=== PATIENT | male | born 1965 | race Caucasian/White ===

== ENCOUNTER 2018-04-29 21:06 | Observation (INO) | payer MEDICARE, OTHER ==
[~2018-04-29 21:06] MED LIST: ADENOSINE 60 MG/20 ML VIAL ONE
--- NOTE | 2018-04-29 21:25 | RAD ---
ONE VIEW CHEST: 04/29/18 HISTORY: Pain. COMPARISON: None. FINDINGS: There is sternotomy wires. Epicardial pacer wires are also noted. Normal cardiac silhouette. Lungs an d pleural spaces are clear. No pneumothorax or osseous abnormalities. IMPRESSION: No acute cardiopulmonary process. POS: [facility]
[2018-04-29] MEDS ORDERED: Morphine 4 MG/ML VIAL ONE (21:37)
[2018-04-29] MEDS ORDERED: Acetaminophen 500 MG TAB ONE (21:37)
[2018-04-29] MEDS ORDERED: Ondansetron PF 4 MG/2 ML Vial ONE (21:38)
[2018-04-29] MEDS ORDERED: Nitroglycerin 2% Ointment 1 INCH/1 GM Packet ONE (21:38)
[2018-04-29 22:13] LABS: ALT (SGPT) 17 U/L (8-55); AST (SGOT) 22 U/L (5-34); Albumin 4.5 g/dL (3.5-5.0); Alkaline Phosphatase 92 U/L (40-150); Anion Gap 17 mmol/L (10-20); BUN (Urea Nitrogen) 17 mg/dL (8.9-20.6); Bilirubin, Total 1.8 mg/dL (0.2-1.2); Calc. Creatinine Clearance 0 mL/min (70-130); Calcium 9.6 mg/dL (7.8-10.44); Carbon Dioxide 19 mmol/L (22-29); Chloride 108 mmol/L (98-107); Estimated GFR-MDRD 82; Glucose 74 mg/dL (70-105); Potassium 4.9 mmol/L (3.5-5.1); Protein, Total 7.5 g/dL (6.0-8.3); Sodium 139 mmol/L (136-145)
[2018-04-29 22:15] LABS: Hemoglobin 16.3 g/dL (14.0-18.0); Mean Corpuscular HGB CONC 32.5 g/dL (32.0-36.0); Mean Corpuscular Hemoglobin 33.1 pg (27.0-31.0); RBC Distribution Width 12.3 % (11.5-14.5); Red Blood Cell (RBC) Count 4.93 mill/uL (4.70-6.10); White Blood Cell (WBC) Count 6.9 thou/uL (4.8-10.8)
[2018-04-29] MEDS ORDERED: hydrALAZINE 20 MG/ML VIAL ONE (22:31)
[2018-04-29 22:55] LABS: #Eosinphils 0.2 thou/uL (0.0-0.7); #Lymphocytes 1.1 thou/uL (1.20-3.40); #Monocytes 0.7 thou/uL (0.11-0.59); #Neutrophils 4.9 thou/uL (1.40-6.50); %Basophils 0.5 % (0.0-1.0); %Eosinophils 2.2 % (0.0-10.0); %Lymphocytes 16.4 % (21.0-51.0); %Monocytes 9.8 % (0.0-10.0); %Neutrophils 71.1 % (42.0-75.0); Mean Platelet Volume 9.7 fL (7.4-10.4); Platelet Count 100 thou/uL (130-400); Platelet Morphology Comment Appears Decreased
[2018-04-29] MEDS ORDERED: Ketorolac Tromethamine 30 MG/ML VIAL ONE (23:30)
[2018-04-30 01:09] LABS: Troponin I Less than 0.010 ng/mL (< 0.028)
--- NOTE | 2018-04-30 01:23 | HP ---
PRIMARY CARE PHYSICIAN: [facility] admission. The patient is seen and examined on the day of 04/29/2018. REASON FOR ADMISSION: Chest pain. HISTORY OF PRESENT ILLNESS: A 52-year-old male who has a history of aortic dissection and coronary artery disease required open heart surgery with CABG in January. At that time, the patient required hospitalization for about one month. The patient also reports that he has a history of KS twice when he was very young and the second time at age of 46. The patient also has underlying history of congestive heart failure and the patient required several times ablation for atrial tachycardia and atrial arrhythmia. 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 He mainly follows [facility] in [place]. The patient also reports that he has planned ablation for his atrial tachycardia in the near soon. 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 He was experiencing yesterday palpitation , but the palpitations subsided after couple of hours during nighttime. This night when he was working and cleaning his desk, at that point, the patient was having chest pain as well as palpitation and that is why coworker called paramedics and the patient was brought to emergency room for evaluation. Paramedics already gave him nitroglycerin sublingual as well as aspirin, Zofran , and the patient was feeling much better afterwards. When I saw this patient in the emergency room, he was not having any further chest pain. He also reported that when he had chest pain, at that time the pain radiated to right upper extremity. He denies any syncope. He denies any orthopnea or PND. He denies any lower extremity edema or calf tenderness. He denies any hemoptysis or cough which he started last night. He denies any flu-like illness. REVIEW OF SYSTEMS: CONSTITUTIONAL: Negative for weight loss or gain, sense of well-being, ability to conduct usual activities, exercise tolerance. SKIN/BREAST: Negative for rash, itching, changes in hair growth or loss, nail changes, breast lumps, tenderness, swelling, nipple discharge. EYES: Negative for vision, double vision, tearing, blind spots, pain. ENT/MOUTH: Negative for headaches, vertigo, lightheadedness, injury. Vision, double vision, tearing, blind spots, pain, nose bleeding, colds, obstruction, discharge , dental difficulties, gingival bleeding, dentures, neck stiffness, pain, tenderness, masses in thyroid or other areas CARDIOVASCULAR: Negative for precordial pain, substernal distress, palpitations , syncope, dyspnea on exertion, orthopnea, nocturnal paroxysmal dyspnea, edema, cyanosis, hypertension, heart murmurs, varicosities, phlebitis, claudication. RESPIRATORY: Negative for pain, shortness of breath, wheezing, stridor, cough, hemoptysis, fever or night sweats GASTROINTESTINAL: Negative for poor appetite, dysphagia, indigestion, abdominal pain, heartburn, eructation, nausea, vomiting, hematemesis, jaundice, constipation, or diarrhea, abnormal stools (bossman-colored, tarry, bloody, greasy, foul smelling ), flatulence, hemorrhoids, recent changes in bowel habits. GENITOURINARY: Negative for urgency, frequency, dysuria, nocturia, hematuria, polyuria, oliguria, unusual (or change in) color of urine, stones, hesitancy, change in size of stream, dribbling, acute retention or incontinence, libido, potency. MUSCULOSKELETAL: Negative for pain, swelling, redness or heat of muscles or joints, limitation of motion, muscular weakness, atrophy, cramps. NEUROLOGIC/PSYCHIATRIC: Negative for convulsions, paralyses, tremor, incoordination, parasthesias, difficulties with memory of speech, sensory or motor disturbances, or muscular coordination (ataxia, tremor), emotional problems, anxiety, depression, previous psychiatric care, unusual perceptions, hallucinations. ALLERGY/IMMUNOLOGIC: Negative for skin rash, anemia, bleeding tendency, polydipsia, polyuria, intolerance to heat or cold. Please see my HPI for pertinent positives and negatives. All other review of systems reviewed and negative except as mentioned in HPI. PAST MEDICAL HISTORY: Per patient, the patient has history of aortic dissection , required surgery, 2 KS required CABG, hypertension dyslipidemia, hypothyroidism. PAST SURGICAL HISTORY: Aortic dissection repair and CABG. PAST PSYCHIATRIC HISTORY: Anxiety and depression. SOCIAL HISTORY: The patient is a former smoker. He quit smoking 10 years ago. He drinks alcohol socially. He denies any other illicit drug abuse. FAMILY HISTORY: Positive for coronary artery disease and cancer among several family members. Father from lung cancer. ALLERGIES: AZITHROMYCIN AND PENICILLIN. CURRENT HOME MEDICATIONS: 1. Aspirin 81 mg daily. 2. Coreg 25 mg twice daily. 3. Lasix 40 mg daily. 4. Levothyroxine 100 mcg p.o. daily. 5. Losartan 50 mg p.o. daily. 6. Nitroglycerin p.r.n. basis. 7. Zoloft 50 mg daily. 8. Aldactone 25 mg p.o. daily. EMERGENCY ROOM COURSE: The patient is given Toradol 30 mg, hydralazine 10 mg, nitroglycerin patch, Zofran 8 mg, morphine 4 mg, and Tylenol 1 g. PHYSICAL EXAMINATION: VITAL SIGNS: Currently, blood pressure 147/83, pulse 69, respiratory rate 20, temperature 98.7, saturation 100% on room air. Weight 81.7 kg. GENERAL: The patient is currently alert, awake, hypertensive, apprehensive. HEENT: Head; normocephalic, atraumatic. Eyes; pupils round, reactive to light. Extraocular muscle intact. ENT, oropharynx within normal limits. Moist mucous membranes. No oral lesion. No pharyngeal erythema. No exudate. NECK: Supple. No JVD. No thyromegaly. No carotid bruit. LUNGS: Clear to auscultation without any rhonchi or rales. CARDIAC: S1 and S2, irregular. No murmur elicited. No gallop. No rub. ABDOMEN: Soft. Bowel sounds present. Nontender. Nondistended. No organomegaly. No mass. No suprapubic tenderness. BACK: Unremarkable. No CVA tenderness. EXTREMITIES: Upper extremities, passive movement of all joints are normal. Lower extremity, trace lower extremity edema noted. Good distal pulsation. No calf tenderness. SKIN: No skin rash. HEMATOLOGICAL SYSTEM: No lymphadenopathy. PSYCHIATRIC: Normal affect. NEUROLOGIC: Nonfocal examination. SIGNIFICANT LABORATORY DATA: EKG showing atrial fibrillation with controlled ventricular response, nonspecific ST-T changes in lead I and aVL. Chest x-ray showing cardiomegaly, post CABG changes. CBC: WBC 6.9, hemoglobin 16.3, MCV 102, platelets 100. BMP: Sodium 139, potassium 4.9, chloride 108, carbon dioxide 19, anion gap 17, BUN 17, creatinine 0.93, glucose 74, calcium 9.4. LFT: AST 22, ALT 17, alkaline phosphatase 92, albumin 4.5, bilirubin 1.8. Troponin 0.010. BNP 251.8. ASSESSMENT AND PLAN: 1. Chest pain and palpitation. The patient has complicated cardiac history including aortic dissection and coronary artery disease with myocardial infarction and several atrial arrhythmias in past, required ablation. This patient's current EKG showing atrial fibrillation with controlled ventricular response. His chest x-ray is unremarkable. His troponin is negative. The patient will be observed in hospital and we will do serial cardiac enzyme x3. We will perform nuclear medicine exercise Cardiolite stress test. We will check urine drug screen. Meanwhile, we will continue with aspirin 325 mg p.o. daily and nitroglycerin patch q.8 hourly. Monitor on telemetry floor. Check lipid profile, TSH for risk stratification. 2. Hypertension. We will continue Coreg 25 mg p.o. twice daily and losartan 50 mg p.o. daily. Use p.r.n. basis hydralazine. 3. Anxiety and depression. We will continue Zoloft 50 mg p.o. daily. 4. Hypothyroidism. We will check TSH and continue his home dose of levothyroxine 150 mcg p.o. daily. 5. Congestive heart failure, type is not known, but suspecting systolic heart failure. The patient is currently euvolemic. We will continue Coreg 25 mg p.o. twice daily, losartan 50 mg p.o. daily, and Lasix 40 mg p.o. daily. We will obtain echocardiography for further evaluation. 6. Macrocytosis and thrombocytopenia, etiology uncertain at this point. We will continue with folic acid and vitamin B12 therapy. 7. Elevated BNP. We will get echocardiography to assess EF. 8. Deep venous thrombosis prophylaxis not needed because we are expecting discharge in 24 hours. 9. Gastrointestinal prophylaxis. Pepcid 20 mg p.o. b.i.d. CODE STATUS: The patient is full code. The patient's mother is surrogate decision maker. DISPOSITION PLAN: Based on above-mentioned investigation result. Plan of care discussed with the patient in detail. The patient is seen and examined on the day of 04/29/2018. Job ID: [id number] [facility]
[2018-04-30] MEDS ORDERED: Bisacodyl 10 MG SUPP PR PRN (01:44)
[2018-04-30] MEDS ORDERED: Senokot S 8.6-50 MG TAB PO PRN (01:44)
[2018-04-30] MEDS ORDERED: Loperamide HCl 2 MG CAP PO PRN (01:44)
[2018-04-30] MEDS ORDERED: Calcium Carbonate 500 MG ChewTAB PO PRN (01:44)
[2018-04-30] MEDS ORDERED: Zolpidem Tartrate 5 MG TAB PO PRN (01:44)
[2018-04-30] MEDS ORDERED: Ondansetron ODT 4 MG TAB PO PRN (01:44)
[2018-04-30] MEDS ORDERED: Bisacodyl 5 MG TAB PO PRN (01:44)
[2018-04-30] MEDS ORDERED: Nitroglycerin 2% Ointment 1 INCH/1 GM Packet ONE (02:26)
[2018-04-30] MEDS ORDERED: HYDROcodone/Acetaminophen 5/325 mg Tablet ONE (02:26)
[2018-04-30 03:33] VITALS: BMI 25.9
[2018-04-30] MEDS: HYDROcodone/Acetaminophen 5/325 mg Tablet PO PRN ×2 (05:55→10:02)
[2018-04-30] MEDS: Nitroglycerin 2% Ointment 1 INCH/1 GM Packet TOP SCH ×3 (05:57→21:41)
[2018-04-30 06:57] LABS: Troponin I Less than 0.010 ng/mL (< 0.028)
[2018-04-30 06:59] LABS: Cardiac Risk 2.9 (Less than 4.5)
[2018-04-30] MEDS ORDERED: HYDROcodone/Acetaminophen 7.5/325 mg Tablet PO PRN (06:59)
[2018-04-30] MEDS ORDERED: Spironolactone 25 MG TAB PO SCH (08:00)
[2018-04-30] MEDS ORDERED: Aspirin 81 mg Enteric Coated Tablet PO SCH (09:00)
[2018-04-30] MEDS ORDERED: Aspirin 325 mg Enteric Coated Tablet PO SCH (09:00)
[2018-04-30] MEDS ORDERED: Losartan 25 MG TAB PO SCH (09:00)
[2018-04-30] MEDS: Ondansetron PF 4 MG/2 ML Vial IVP PRN ×3 (09:41→21:44)
[2018-04-30] MEDS: Folic Acid 1 MG TAB PO SCH (14:32)
[2018-04-30] MEDS: Cyanocobalamin (Vitamin B-12) 1,000 MCG TAB PO SCH (14:33)
[2018-04-30] MEDS: Levothyroxine Sodium 50 MCG TAB PO SCH (14:34)
[2018-04-30] MEDS: Famotidine 20 MG TAB PO SCH ×2 (14:34→21:44)
[2018-04-30] MEDS: Aspirin 81 mg Enteric Coated Tablet PO SCH (14:34)
[2018-04-30] MEDS: Furosemide 40 MG TAB PO SCH (14:35)
[2018-04-30] MEDS: Spironolactone 25 MG TAB PO SCH (14:35)
[2018-04-30] MEDS: Losartan 25 MG TAB PO SCH (14:36)
[2018-04-30] MEDS: Carvedilol 25 MG TAB PO SCH ×2 (14:38→21:41)
[2018-04-30 16:34] LABS: Medtox Reader # READER 1
[2018-04-30 16:35] LABS: Amphetamine Not Detected (NotDetected); Barbiturates Screen Not Detected (NotDetected); Benzodiazepine Screen Not Detected (NotDetected); Cocaine Metabolite Screen Not Detected (NotDetected); Medtox Control Line Valid? VALID (VALID); Methadone Not Detected (NotDetected); Methamphetamine Not Detected (NotDetected); Opiate Screen Detected (NotDetected); Oxycodone Screen Not Detected (NotDetected); Phencyclidine (PCP) Not Detected (NotDetected); THC/Cannabinoid Screen Not Detected (NotDetected); Tricyclic Screen Not Detected (NotDetected)
--- NOTE | 2018-04-30 17:03 | NM ---
NUCLEAR MEDICINE CARDIAC STRESS TEST WITH EJECTION FRACTION: HISTORY: Chest pain. COMPARISON: None. TECHNIQUE: Stress and rest was performed after the intravenous administration of 30.6 and 9.6 mCi technetium-99 m sestamibi, respectively. FINDINGS: There is a large inferior and lateral wall scar extending to the apex. There is dyskinesia of the inf erior and lateral wall. The calculated ejection fraction measures 39%. IMPRESSION: 1. Large scar inferior and lateral wall extending to the apex without significant periinfarct ischem ia appreciated. 2. Low ejection fraction of 39%. POS: [facility]
--- NOTE | 2018-04-30 17:08 | PDOC.PN ---
- Subjective Encounter Start Date: 04/30/18 Encounter Start Time: 17:06 Subjective: cont to have chest pain, asking for iv morphine - Objective Resuscitation Status - Order Detail: 04/30/18 01:42 Resuscitation Status Routine Resuscitation Status: FULL: Full Resuscitation MAR Reviewed: Yes Vital Signs & Weight: Vital Signs (12 hours) Temp Pulse Resp BP Pulse Ox 04/30/18 16:21 98.1 F 65 18 119/69 99 04/30/18 13:53 97.5 F L 87 18 157/88 H 99 04/30/18 08:11 97.7 F 58 L 18 115/66 97 Weight Weight 186 lb 1.6 oz Result Diagrams: 04/29/18 21:36 04/29/18 21:36 Phys Exam - Physical Examination Constitutional: NAD Neck: no JVD Respiratory: clear to auscultation bilateral Cardiovascular: RRR, no significant murmur Gastrointestinal: soft, positive bowel sounds Musculoskeletal: no edema Dx/Plan (1) Chest pain Code(s): R07.9 - CHEST PAIN, UNSPECIFIED Status: Acute Qualifiers: Chest pain type: unspecified Qualified Code(s): R07.9 - Chest pain, unspecified (2) CAD (coronary artery disease) Code(s): I25.10 - ATHSCL HEART DISEASE OF [place] CORONARY ARTERY W/O ANG PCTRS Status: Chronic Qualifiers: Coronary Disease-Associated Artery/Lesion type: [place] artery [place] vs. transplanted heart: [place] heart Associated angina: without angina Qualified Code(s): I25.10 - Atherosclerotic heart disease of [place] coronary artery without angina pectoris (3) Cardiomyopathy Code(s): I42.9 - CARDIOMYOPATHY, UNSPECIFIED Status: Chronic Qualifiers: Cardiomyopathy type: ischemic Qualified Code(s): I25.5 - Ischemic cardiomyopathy (4) HTN (hypertension) Code(s): I10 - ESSENTIAL (PRIMARY) HYPERTENSION Status: Chronic Qualifiers: Hypertension type: essential hypertension Qualified Code(s): I10 - Essential (primary) hypertension (5) Atrial fibrillation Code(s): I48.91 - UNSPECIFIED ATRIAL FIBRILLATION Status: Acute Qualifiers: Atrial fibrillation type: paroxysmal Qualified Code(s): I48.0 - Paroxysmal atrial fibrillation - Plan stress test neg, discussed with patient. on no anticag, requested cardiolog -: consult -: cont home meds * .
[2018-05-01] MEDS: Ondansetron PF 4 MG/2 ML Vial IVP PRN ×3 (04:41→16:59)
[2018-05-01] MEDS: Nitroglycerin 2% Ointment 1 INCH/1 GM Packet TOP SCH (05:41)
[2018-05-01] MEDS ORDERED: Carvedilol 6.25 MG TAB PO SCH (09:00)
[2018-05-01] MEDS: Losartan 25 MG TAB PO SCH (09:33)
[2018-05-01] MEDS: Furosemide 40 MG TAB PO SCH (09:34)
[2018-05-01] MEDS: Aspirin 81 mg Enteric Coated Tablet PO SCH (09:44)
[2018-05-01] MEDS: Carvedilol 25 MG TAB PO SCH ×2 (09:44→20:44)
[2018-05-01] MEDS: Levothyroxine Sodium 50 MCG TAB PO SCH (09:45)
[2018-05-01] MEDS: Cyanocobalamin (Vitamin B-12) 1,000 MCG TAB PO SCH (09:45)
[2018-05-01] MEDS: Folic Acid 1 MG TAB PO SCH (09:45)
[2018-05-01] MEDS: Famotidine 20 MG TAB PO SCH ×2 (09:45→20:44)
[2018-05-01] MEDS: Spironolactone 25 MG TAB PO SCH (10:52)
[2018-05-01] MEDS ORDERED: Apixaban 5 MG TAB PO SCH (11:45)
--- NOTE | 2018-05-01 14:26 | PDOC.EVN ---
Event Note - Event Note Event Note: Patient complaining of CP. Will get STAT EKG and Troponins. Hold discharge for now.
[2018-05-01] MEDS: Nitroglycerin 2% Ointment 1 INCH/1 GM Packet TOP PRN ×2 (14:47→23:18)
[2018-05-01] MEDS: Nitroglycerin 0.4 MG TAB (25 Tab Bottle) SL SCH ×2 (18:07→22:09)
[2018-05-01] MEDS: Apixaban 5 MG TAB PO SCH (20:41)
[2018-05-01] MEDS: Acetaminophen 325 MG TAB PO PRN (22:13)
[2018-05-02 06:36] LABS: #Eosinphils 0.1 thou/uL (0.0-0.7); #Lymphocytes 1.8 thou/uL (1.20-3.40); #Monocytes 0.5 thou/uL (0.11-0.59); #Neutrophils 1.9 thou/uL (1.40-6.50); %Basophils 0.5 % (0.0-1.0); %Eosinophils 2.2 % (0.0-10.0); %Lymphocytes 41.9 % (21.0-51.0); %Monocytes 10.7 % (0.0-10.0); %Neutrophils 44.8 % (42.0-75.0); Hemoglobin 13.5 g/dL (14.0-18.0); Mean Corpuscular HGB CONC 32.3 g/dL (32.0-36.0); Mean Corpuscular Hemoglobin 32.7 pg (27.0-31.0); Mean Platelet Volume 9.5 fL (7.4-10.4); Platelet Count 81 thou/uL (130-400); RBC Distribution Width 12.2 % (11.5-14.5); Red Blood Cell (RBC) Count 4.15 mill/uL (4.70-6.10); White Blood Cell (WBC) Count 4.2 thou/uL (4.8-10.8)
[2018-05-02 06:52] LABS: Anion Gap 10 mmol/L (10-20); BUN (Urea Nitrogen) 10 mg/dL (8.9-20.6); Calc. Creatinine Clearance 121 mL/min (70-130); Calcium 8.5 mg/dL (7.8-10.44); Carbon Dioxide 25 mmol/L (22-29); Chloride 107 mmol/L (98-107); Estimated GFR-MDRD Greater than 90; Glucose 77 mg/dL (70-105); Magnesium 1.9 mg/dL (1.6-2.6); Potassium 3.8 mmol/L (3.5-5.1); Sodium 138 mmol/L (136-145)
[2018-05-02] MEDS: Nitroglycerin 0.4 MG TAB (25 Tab Bottle) SL SCH (08:27)
[2018-05-02] MEDS: Nitroglycerin 2% Ointment 1 INCH/1 GM Packet TOP PRN (08:42)
[2018-05-02] MEDS: Acetaminophen 325 MG TAB PO PRN (08:42)
[2018-05-02] MEDS: Ondansetron PF 4 MG/2 ML Vial IVP PRN (08:42)
[2018-05-02] MEDS: Losartan 25 MG TAB PO SCH (08:51)
[2018-05-02] MEDS: Spironolactone 25 MG TAB PO SCH (08:52)
[2018-05-02] MEDS: Carvedilol 25 MG TAB PO SCH (08:52)
[2018-05-02] MEDS: Furosemide 40 MG TAB PO SCH (08:52)
[2018-05-02] MEDS: Cyanocobalamin (Vitamin B-12) 1,000 MCG TAB PO SCH (08:52)
[2018-05-02] MEDS: Folic Acid 1 MG TAB PO SCH (08:52)
[2018-05-02] MEDS: Levothyroxine Sodium 50 MCG TAB PO SCH (08:52)
[2018-05-02] MEDS: Famotidine 20 MG TAB PO SCH (08:52)
[2018-05-02] MEDS ORDERED: Mag-Al 1200 mg/1200 mg/30 ML UDCUP PO SCH (09:15)
[2018-05-02] MEDS: Apixaban 5 MG TAB PO SCH (09:33)
--- NOTE | 2018-05-02 12:21 | PDOC.CTH ---
Cardiology Progress Note - Subjective Called back by nurse/hospitalist because patient still having random episodes of CP. Unrelated to exertion. Also c/o palpitations. Patient reports having this pain intermittently for months. Says the pain is why he is scheduled for ablation in the near future. Has discussed with primary shaker plate operator in the past. Gives history of last EF 35-40% possibly. Current ECHO 25-30% and LifeVest about to be placed. Rhythm has been atrial tach/flutter that is rate- controlled. On Eliquis. Patient with EKGs showing no ST segment changes. Negative trop. Stress CL with inferior and lateral scar and no ischemia. - Objective Vital Signs Temp Pulse Resp BP Pulse Ox 05/02/18 11:56 98.0 F 59 L 18 116/68 95 05/02/18 07:55 97.7 F 57 L 18 157/86 H 05/02/18 04:46 97.7 F 57 L 15 122/74 92 L Weight 186 lb 1.6 oz 05/01/18 05/02/18 05/03/18 06:59 06:59 07:59 Intake Total 1360 1040 Output Total 1950 2550 Balance -590 -1510 - Physical Examination General/Neuro: alert & oriented x3 Neck: no JVD present - Telemetry Telemetry Rhythm: Atrial tach/flutter - Labs Result Diagrams: 05/02/18 06:00 05/02/18 06:00 Troponin/CKMB Troponin I Less than 0.010 ng/mL (< 0.028) 05/02/18 06:00 - Assessment/Plan 1. Atypical CP 2. ICMO 3. Atrial Tach/Flutter 4. CAD s/p CABG 5. History of TAA repair in the past Pain is atypical in nature. Recent stress negative for ischemia. Negative trops. No EKG changes. Patient does report palpitations related to arrhythmia. Will add Imdur. F/U with primary shaker plate operator and EP physician in [place] in the next week.
--- NOTE | 2018-05-02 12:23 | PDOC.PN ---
- Subjective Encounter Start Date: 05/02/18 Encounter Start Time: 12:21 Mr. Schaeffer was seen today in follow-up. He has not had any chest pain this morning. - Objective Resuscitation Status - Order Detail: 04/30/18 01:42 Resuscitation Status Routine Resuscitation Status: FULL: Full Resuscitation MAR Reviewed: Yes Vital Signs & Weight: Vital Signs (12 hours) Temp Pulse Resp BP Pulse Ox 05/02/18 11:56 98.0 F 59 L 18 116/68 95 05/02/18 07:55 97.7 F 57 L 18 157/86 H 05/02/18 04:46 97.7 F 57 L 15 122/74 92 L Weight Weight 186 lb 1.6 oz I&O: 05/01/18 05/02/18 05/03/18 06:59 06:59 07:59 Intake Total 1360 1040 Output Total 1950 2550 Balance -590 -1510 Result Diagrams: 05/02/18 06:00 05/02/18 06:00 Phys Exam - Physical Examination HEENT: PERRLA Respiratory: no wheezing, no rales, no rhonchi, clear to auscultation bilateral Cardiovascular: RRR, no significant murmur, no rub Gastrointestinal: soft, non-tender, no distention, positive bowel sounds Musculoskeletal: no edema Dx/Plan (1) Chest pain Code(s): R07.9 - CHEST PAIN, UNSPECIFIED Status: Acute Qualifiers: Chest pain type: unspecified Qualified Code(s): R07.9 - Chest pain, unspecified (2) Atrial fibrillation Code(s): I48.91 - UNSPECIFIED ATRIAL FIBRILLATION Status: Chronic Qualifiers: Atrial fibrillation type: paroxysmal Qualified Code(s): I48.0 - Paroxysmal atrial fibrillation (3) CAD (coronary artery disease) Code(s): I25.10 - ATHSCL HEART DISEASE OF [place] CORONARY ARTERY W/O ANG PCTRS Status: Chronic Qualifiers: Coronary Disease-Associated Artery/Lesion type: [place] artery [place] vs. transplanted heart: [place] heart Associated angina: without angina Qualified Code(s): I25.10 - Atherosclerotic heart disease of [place] coronary artery without angina pectoris (4) Cardiomyopathy Code(s): I42.9 - CARDIOMYOPATHY, UNSPECIFIED Status: Chronic Qualifiers: Cardiomyopathy type: ischemic Qualified Code(s): I25.5 - Ischemic cardiomyopathy (5) HTN (hypertension) Code(s): I10 - ESSENTIAL (PRIMARY) HYPERTENSION Status: Chronic Qualifiers: Hypertension type: essential hypertension Qualified Code(s): I10 - Essential (primary) hypertension - Plan * Chest pain- discussed with Cardiology- this is not likely due to coronary artery disease * Stress test was negative,a s well as his Cardiac enzymes * Will adjust his medications * He is stable for discharge home.
[2018-05-02] MEDS: Aspirin 81 mg Enteric Coated Tablet PO SCH (13:25)
[2018-05-02 16:59] VITALS: BP 110/71; TEMP 97.7
--- NOTE | 2018-05-02 17:37 | DIS ---
DATE OF ADMISSION: 04/29/2018 DATE OF DISCHARGE: 05/02/2018 DISCHARGE DISPOSITION: Home. PRIMARY DISCHARGE DIAGNOSES: 1. Chest pain, probable noncardiac. 2. History of atrial tachycardia and atrial fibrillation. 3. History of aortic dissection. 4. Coronary artery disease, status post bypass. 5. Hypertension. 6. Dyslipidemia. 7. Hypothyroidism. DISCHARGE MEDICATIONS: Include; 1. Imdur 15 mg extended release daily. 2. Folic acid 1 mg daily. 3. Vitamin B12 1000 mcg p.o. daily. 4. Eliquis 5 mg twice a day. 5. Spironolactone 25 mg daily. 6. Sertraline 25 mg daily. 7. Nitrostat 0.4 sublingual p.r.n. 8. Cozaar 50 mg daily. 9. Levothyroxine 50 mcg daily. 10. Imperial 7.5/325 q.6h as needed. 11. Lasix 40 mg daily. 12. Carvedilol 25 mg twice a day. 13. Aspirin 81 mg daily. 14. Vitamin C 500 mg daily. PROCEDURES DONE DURING ADMISSION: The patient had a nuclear stress test, which had demonstrated a large scar in the inferior lateral wall extending to the apex without any significant andrea-infarct ischemia. The ejection fraction was estimated at 39%. The patient had an echocardiogram in which the EF was estimated at 25% to 30%. There is an inferior apical wall, was akinetic, moderately enlarged right ventricular cavity and [id number] tricuspid regurgitation. CODE STATUS: Full code. ALLERGIES: AZITHROMYCIN AND PENICILLIN. HOSPITAL COURSE: Mr. Schaeffer is a pleasant 52-year-old gentleman, who was in town due to a job transfer at work. This was a temporary transfer. He normally gets his care in [place], [place]. He presented with chest pain and palpitations. He has a known history of atrial tachycardia and atrial flutter and there was a plan for an ablation procedure upcoming in [place]. He was placed in observation and ruled out. Stress test was negative and he was evaluated by Cardiology as well. An echo was done due to the ejection fraction being somewhat low on the stress test. The EF was in the range of requiring AICD. Therefore, a LifeVest was ordered and the patient was fitted for this prior to discharge and he was placed on Imdur as well as Eliquis due to the paroxysmal atrial fibrillation noticed on telemetry and it is being recommended to follow up with his oil dispenser in [place] as soon as possible. Job ID: [id number]
--- NOTE | 2018-05-04 08:54 | DIS ---
DATE OF ADMISSION: 04/29/2018 DATE OF DISCHARGE: 05/02/2018 DISCHARGE DISPOSITION: To home. FOLLOWUP: 1. Follow up with primary care physician, Dr. Raffaele Scruggs in [place]. 2. Follow up with primary headlight adjuster, Dr. Irvin Longo in [place]. ALLERGIES: THE PATIENT IS ALLERGIC TO AZITHROMYCIN AND PENICILLIN. THE PATIENT WAS SEEN AND EXAMINED ON THE DAY OF DISCHARGE. DENIES ANY NEW COMPLAINTS. NO CHEST PAIN, SHORTNESS OF BREATH, OR PALPITATIONS REPORTED. BRIEF HOSPITAL COURSE: The patient is a 52-year-old male with coronary artery disease, status post CABG; hypertension, and dyslipidemia, who presented to the hospital with chest discomfort. Please refer to the history and physical dated April 29, 2018 for further details. The patient was admitted to the hospital with a diagnosis of chest discomfort, rule out acute coronary syndrome. His serial troponins were negative. BNP was 251. Fasting lipid profile showed cholesterol 95, LDL 56, triglycerides 32 with HDL of 33. He was evaluated by Cardiology. An echocardiogram was obtained that showed ejection fraction 25% to 30% with mild aortic regurgitation, [id number] tricuspid regurgitation, mild mitral regurgitation. He was found to have intermittent atrial flutter with underlying atrial fibrillation. Anticoagulation was recommended by Cardiology. The plan was discussed with the patient and his mother over the phone. They decided to start Eliquis. He understands the risks associated with the Eliquis. He was advised to follow up with his primary headlight adjuster in next 2 to 3 days. He also follows with his fire extinguisher technician in [place]. He underwent a Cardiolite stress test this admission that was negative for reversible ischemia. There was a large scar in the inferior and the lateral wall extending to the apex without significant andrea-infarct ischemia. Ejection fraction on the stress test was 39%. LifeVest will be arranged prior to discharge. FINAL DIAGNOSES: 1. Chest discomfort, acute coronary syndrome ruled out. 2. No reversible ischemia on the stress test. 3. Palpitations secondary to atrial fibrillation/flutter, started on anticoagulation. His rate is controlled. 4. Hypothyroidism. 5. Anxiety. 6. Hypertension. 7. Chronic systolic heart failure, ejection fraction 25% to 30%. 8. Macrocytosis. The patient has been started on vitamin B12 and folic acid. PLAN: Plan of care was discussed with the patient and the family at the bedside, they stated understanding. Job ID: [id number]
--- NOTE | 2018-05-04 11:46 | STRESS ---
Acquisition Time: 2018-04-30 12:05:04 Total Exercise Time: 00:04:00 Test Indications: CHEST PAIN Medications: Protocol: ADENOSINE Max HR: 075 BPM 44% of Pred: 170 BPM Max BP: 130/076 mmHG Max Work Load: 1.0 METS RESTING ECG: NORMAL SINUS RHYTHM AT 70 BPM WITH SECOND DEGREE TYPE I HEART BLOCK AND NON-SPECIFIC ST SEGMENT AND T-WAVE ABNORMALITIES SYMPTOMS: LIGHTHEADED APPROPRIATE BLOOD PRESSURE RESPONSE FOR ADENOSINE ECTOPY: RARE PVCs ECG RESPONSE: NO SIGNIFICANT CHANGES INTERPRETATION: INDETERMINATE ECG/AWAIT NUCLEAR IMAGES FOR DEFINITIVE DIAGNOSIS Confirmed by HEVER MACDONALD ([id number]) on 05/04/2018 11:45:52 AM Referred By: MD Cheyanne NGUYỄN Confirmed By:HEVER MACDONALD
--- NOTE | 2018-05-05 09:41 | EKG ---
Test Reason : Blood Pressure : / mmHG Vent. Rate : 057 BPM Atrial Rate : 057 BPM P-R Int : 222 ms QRS Dur : 114 ms QT Int : 428 ms P-R-T Axes : 022 020 127 degrees QTc Int : 416 ms Sinus bradycardia with 1st degree A-V block Inferior infarct (cited on or before 29-APR-2018) Abnormal ECG Confirmed by DAMION BROWN ([id number]) on 05/05/2018 9:40:41 AM Referred By: Confirmed By:DAMION BROWN
== END 2018-05-02 19:25 | disposition home or self-care (01) ==
LOC: ERS 21:06 → ERHOLD 22:30 → 2NO 04-30 03:18
PROVIDERS: ADMIT Internal Medicine; ATTEND Internal Medicine
DX: R07.89 Other chest pain (principal); I48.92 Unspecified atrial flutter; I48.0 Paroxysmal atrial fibrillation; I25.10 Atherosclerotic heart disease of native coronary artery without angina pectoris; I11.0 Hypertensive heart disease with heart failure; I50.22 Chronic systolic (congestive) heart failure; I25.2 Old myocardial infarction; I25.5 Ischemic cardiomyopathy; E78.5 Hyperlipidemia, unspecified; E03.9 Hypothyroidism, unspecified; F41.9 Anxiety disorder, unspecified; F32.9 Major depressive disorder, single episode, unspecified; Z95.1 Presence of aortocoronary bypass graft; Z87.891 Personal history of nicotine dependence; Z88.1 Allergy status to other antibiotic agents; Z88.0 Allergy status to penicillin; Z79.82 Long term (current) use of aspirin; Z79.01 Long term (current) use of anticoagulants; Z79.899 Other long term (current) drug therapy
CPT/HCPCS: 71045; 78452; 80048; 80053; 80061; 80306; 83735; 83880; 84484 ×6; 85025 ×2; 93005 ×2; 93017; 93306; 94760; 96374; 96375; 99285; A9500; G0378 ×6; 36415; 93010; J0153; J0360; J1885; J2270; J2405